=== PATIENT | male | born 1975 | race Caucasian/White ===

== ENCOUNTER → 2021-05-24 00:45 | Outpatient (CLI) | payer OTHER, SELFPAY ==
[2021-05-25 18:19] LABS: SARS-CoV-2 RNA PCR Negative
== END ==
PROVIDERS: PCP Internal Medicine; Visit Provider Internal Medicine Gastroenterology
DX: Z01.812 Encounter for preprocedural laboratory examination (principal); Z20.822 Contact with and (suspected) exposure to COVID-19
CPT/HCPCS: C9803; U0003; U0005

== ENCOUNTER 2021-05-27 00:24 | Day surgery (SDC) | payer OTHER, SELFPAY ==
[2021-05-13 15:19] VITALS: BMI 38.0
[2021-05-27 09:33] VITALS: BP 142/98; PULSE 110; RESP 18; TEMP 36.3; O2SAT 98; BMI 36.9
[2021-05-27] MEDS: LACTATED RINGERS 1,000 ML 150 ML IV CONT (09:50)
--- NOTE | 2021-05-27 09:51 | WPDANESEPPF ---
Anes - Initial Pre Proc Eval Procedure: Operation Date: 05/27/21 11:00 Proposed Procedures p Screening Colonoscopy - Tito Unger MD Date/Time: 05/27/21 09:51 Surgeon: Tito Unger MD Pre Op Diagnosis: neoplasm screening Patient Data Age: 46 Gender: M Height: 1.7 m Weight: 107 kg Last Vital Signs Temp 36.3 C L 05/27/21 09:33 Pulse 110 H 05/27/21 09:33 Resp 18 05/27/21 09:33 BP 142/98 H 05/27/21 09:33 Pulse Ox 98 05/27/21 09:33 Allergies Allergy/AdvReac Type Severity Reaction Status Date / Time No Known Allergies Allergy Verified 05/27/21 09:43 Home Medications Medication Instructions Recorded Confirmed Type atorvastatin 40 mg PO DAILY 05/13/21 05/27/21 History gabapentin 300 mg PO DAILY 05/13/21 05/27/21 History omeprazole 20 mg PO DAILY 05/13/21 05/27/21 History Patient hx anesthesia problems: none Family hx anesthesia problems: none Results Review: All pre-operative results and documents have been reviewed as part of the pre-operative evaluation. PMFSH Past Medical History Medical History Depression Obesity Smoker Surgical History Surgical History (Updated 05/27/21 @ 09:54 by Elier Oneal MD) H/O arthroscopic knee surgery History of appendectomy History of cholecystectomy Social History Social History Smoking packs per day: 1 Smoking cigarettes per day: 20.0 Years smoked: 30 Smoking pack-years: 30.00 Smoking status: Current every day smoker Tobacco type: cigarettes Alcohol intake: current Alcohol use details: on occasion Substance use: current Substance use type: marijuana Living arrangements: with family Anes - Eval Final PreProcedure Day of Procedure 05/27/21 09:51 Patient weight: obese Heart: regular rate and rhythm Lungs: clear to auscultation Airway: Mallampati scale class III Neurological: alert and oriented Last oral intake: >/= 8 hours ASA classification: III Emergent: no Anesthetic plan: proceed Anesthesia type and monitoring: general GIVS and standard monitoring Results Review: All pre-operative results and documents have been reviewed as part of the pre-operative evaluation. Informed Consent: The patient's anesthetic plan and its attendant risks and benefits were discussed with the patient/family/POA. Questions were solicited and answers provided to the satisfaction of the patient/family/POA.
--- NOTE | 2021-05-27 09:56 | PM.HPGS ---
History of Present Illness History of Present Illness Consent: Risks, benefits, and alternatives have been discussed and questions answered. Patient agrees to proceed with procedure. Chief complaint: neoplasm screening Narrative: Albaro Thapa is a 46 year old male here for first screening colonoscopy Review of Systems Constitutional: Constitutional: Denies headache(s) and Denies weakness Eyes: Eyes: Denies blurry vision ENT: Reports Normal hearing present, Denies headache(s) and Denies neck pain Cardiovascular: Cardiovascular: Denies chest pain and Denies dyspnea Respiratory: Respiratory: Denies dyspnea Gastrointestinal: Gastrointestinal: Reports no additional gastrointestinal complaints Genitourinary: Genitourinary: Denies dysuria Musculoskeletal: Musculoskeletal: Denies neck pain Integumentary/Breasts: Skin/Breast: Denies dry skin Neurologic: Reports Normal hearing present, Denies headache(s) and Denies weakness Psychiatric: Psychiatric: Denies anxiety Endocrine: Endocrine: Denies change in body appearance Hematologic/Lymphatic: Hematologic/Lymphatic: Denies easy bleeding Allergic/Immunologic: Allergic/Immunologic: Denies urticaria PMF Past Medical History Medical History Colon cancer screening Depression Obesity Smoker Surgical History Surgical History (Updated 05/27/21 @ 09:54 by Elier Oneal MD) H/O arthroscopic knee surgery History of appendectomy History of cholecystectomy Social History Social History Smoking packs per day: 1 Smoking cigarettes per day: 20.0 Years smoked: 30 Smoking pack-years: 30.00 Smoking status: Current every day smoker Tobacco type: cigarettes Alcohol intake: current Alcohol use details: on occasion Substance use: current Substance use type: marijuana Living arrangements: with family Meds Home Medications and Allergies Home Medications Medication Instructions Recorded Confirmed Type atorvastatin 40 mg PO DAILY 05/13/21 05/27/21 History gabapentin 300 mg PO DAILY 05/13/21 05/27/21 History omeprazole 20 mg PO DAILY 05/13/21 05/27/21 History Allergies Allergy/AdvReac Type Severity Reaction Status Date / Time No Known Allergies Allergy Verified 05/27/21 09:43 Vital Signs Vital Signs - 24 hr 05/27/21 09:33 Temperature 97.4 F L Pulse Rate 110 H Respiratory Rate 18 Blood Pressure 142/98 H Pulse Oximetry 98 Exam Const: General: comfortable and no acute distress HENMT: General nose exam: Normal nares present Eyes: General: appearance normal, both eyes and all related structures Neck: Neck: no JVD Resp: Auscultation: clear to auscultation bilaterally Cardio: Rate: regular rate Rhythm: regular rhythm GI: Inspection: non-distended GI Palp: Yes Soft to palpation Skin: General skin exam: normal color Neuro: General: gait normal Speech: normal speech Extrem: General: normal to inspection Psych: Mental Status: mental status grossly normal Assessment and Plan Assessment and plan (1) Colon cancer screening: Code(s): Z12.11 - Encounter for screening for malignant neoplasm of colon Status: Acute Assessment and Plan: colonoscopy
[2021-05-27 10:15] VITALS: BP 145/84; PULSE 95; RESP 22; O2SAT 92
[2021-05-27 10:25] VITALS: BP 114/78; PULSE 88; RESP 24; O2SAT 94
[2021-05-27 10:35] VITALS: BP 120/79; PULSE 86; RESP 20; O2SAT 94
== END 2021-05-27 10:45 | disposition home or self-care (01) ==
PROVIDERS: PCP Internal Medicine; Visit Provider Internal Medicine Gastroenterology
PROC: 0DJD8ZZ Inspection of Lower Intestinal Tract, Via Natural or Artificial Opening Endoscopic (ICD-10-PCS; CPT 45378; principal; 2021-05-27 11:00)
DX: Z12.11 Encounter for screening for malignant neoplasm of colon (principal); D12.0 Benign neoplasm of cecum; K64.8 Other hemorrhoids; F41.9 Anxiety disorder, unspecified; F17.210 Nicotine dependence, cigarettes, uncomplicated; F12.90 Cannabis use, unspecified, uncomplicated; E66.9 Obesity, unspecified; Z68.36 Body mass index [BMI] 36.0-36.9, adult
CPT/HCPCS: 45385; 88305; J2001; J2704; J7120

== ENCOUNTER 2023-10-15 18:51 | Emergency (ER) | payer OTHER, SELFPAY ==
[2023-10-15 18:56] VITALS: BP 124/75; PULSE 94; RESP 20; TEMP 36.6; O2SAT 98
--- NOTE | 2023-10-15 19:04 | ED.URI ---
HPI - URI/Sore Throat General Chief Complaint: Upper Respiratory Infection Stated Complaint: ear sinus or tooth Time Seen by Provider: 10/15/23 19:05 Source: patient Mode of arrival: ambulatory History of Present Illness HPI Narrative: 48-year-old male presented for complaint of left facial pain for the last 3 days. Endorses sharp shooting pains from the left ear to the cheek and jaw. Endorses slightly decreased hearing. Also endorses headaches but states he has chronic headaches. Denies vision changes, eye pain, dental pain, sore throat, tinnitus, nausea, vomiting, fevers or chills. Rates pain 9/10 at times. Taking tylenol and ibuprofen. Scheduled with dentist in 2 months. Related Data Home Medications Medication Instructions Recorded Confirmed atorvastatin 40 mg tablet 40 mg PO DAILY 05/13/21 10/15/23 omeprazole 20 mg capsule,delayed 20 mg PO DAILY 05/13/21 05/27/21 release bupropion HCl 150 mg 24 hr tablet, 150 mg PO DAILY 10/15/23 10/15/23 extended release cetirizine 10 mg tablet 10 mg PO DAILY 10/15/23 10/15/23 duloxetine 30 mg capsule,delayed 30 mg PO DAILY 10/15/23 10/15/23 release gabapentin 400 mg capsule 400 mg PO TID 10/15/23 10/15/23 Allergies Allergy/AdvReac Type Severity Reaction Status Date / Time No Known Allergies Allergy Verified 10/15/23 19:32 Review of Systems Review of Systems: CONSTITUTIONAL: Denies body aches, fever, chills ENT: Denies rhinorrhea, congestion, sore throat, or otalgia. Reports dental pain/face pain CARDIOVASCULAR: Denies chest pain, palpitations RESPIRATORY: Denies cough or dyspnea. SKIN: Denies rash, itching, or wounds. MUSCULOSKELETAL: Denies myalgia. NEUROLOGIC: Denies headache, numbness, tingling, or weakness. PMFSH Past Medical History Medical History Colon cancer screening Depression Obesity Smoker Surgical History Surgical History H/O arthroscopic knee surgery History of appendectomy History of cholecystectomy Social History Social History Smoking packs per day: 1 Smoking cigarettes per day: 20.0 Years smoked: 30 Smoking pack-years: 30.00 Smoking status: Current every day smoker Tobacco type: cigarettes Alcohol intake: current Alcohol use details: on occasion Substance use: current Substance use type: marijuana Living arrangements: with family Comments At time of signature, I have reviewed and agree with nursing past medical, surgical, social and family history unless otherwise noted. Please see nursing chart for further information. There is no relevant family history pertinent to the presenting complaint Exam Narrative: GENERAL: Appears in pain; no acute distress. HEAD: Normocephalic, atraumatic. Mildly tender to temporal area, maxilla, and mandible. EYES: EOMI. No redness or drainage. Conjunctivae normal. ENT: Dental pain location of Mucous membranes pink and moist. Nontender dentition, no gum swelling/erythema. TMs normal bilaterally. Throat normal. Uvula midline. NECK: Normal AROM. No lymphadenopathy. CHEST: No respiratory distress. Clear to auscultation. HEART: Regular rate and rhythm. No murmur appreciated. SKIN: Warm, dry, no rash. No erythema or bruising to face. Normal skin turgor. NEURO: No focal deficits. Alert and oriented x3. Gait steady. Course Course Emergency Course: Patient is aware of diagnosis, understands and agrees to treatment plan. Anticipatory guidance given. Patient agrees to follow-up as directed and is aware of reasons to seek care at the emergency department. Portions of this record may have been created with voice recognition software Level of Care: Express Care Visit MDM - URI/Sore Throat MDM Narrative Medical decision making narrative: Discussed physical exam findings most c/w trigeminal neuralgia. Currently taking gabapentin. States he has to l
== END 2023-10-15 19:25 | disposition home or self-care (01) ==
PROVIDERS: Emergency Provider Nurse Practitioner Family; PCP Internal Medicine
DX: R51.9 Headache, unspecified (principal); F32.A Depression, unspecified; E66.9 Obesity, unspecified; Z68.34 Body mass index [BMI] 34.0-34.9, adult; F17.210 Nicotine dependence, cigarettes, uncomplicated; F12.90 Cannabis use, unspecified, uncomplicated
CPT/HCPCS: 99213; G0463

== ENCOUNTER 2023-11-12 13:50 | Emergency (ER) | payer OTHER, SELFPAY ==
--- NOTE | ~2023-11-12 | XR_ITS ---
XR finger 4th LT min 2V Ordering provider: Eliane Hahn APRN History: . DISTAL PHALANX FLEXED AFTER INJURY . Comparison: None. FINDINGS: BONES: No acute fracture or dislocation. JOINT SPACES: Normal. SOFT TISSUES: Normal. IMPRESSION: No acute osseous abnormality. Reviewed, dictated and finalized at location A.
[2023-11-12 13:57] VITALS: BP 138/87; PULSE 68; RESP 16; TEMP 36.1; O2SAT 96
--- NOTE | 2023-11-12 14:23 | ED.GENADULT ---
HPI - General Adult General Chief complaint: Extremity Injury, Upper Stated complaint: Injury to Finger Time Seen by Provider: 11/12/23 14:23 Source: patient, RN notes reviewed and old records reviewed Mode of arrival: ambulatory Limitations: no limitations History of Present Illness HPI narrative: 48-year-old male to Express Care for complaint of injury to 4th digit of left hand. Patient reports that 3 days ago he was working on a swimming pool, lifting part of it with his right hand and pushing sand underneath it with his left hand. Patient states he felt pain while his left hand was underneath/out of site. Patient reports that when he pulled his hand back out he noticed a deformity at his distal 4th digit of left hand. Patient states that his entire digit was swollen for approximately 24 hours and the deformity has become less apparent over the past day or 2. Patient has not attempted to treat at home. Patient denies any prior injury, tingling, numbness, weakness. Patient reports that pain is non-existent with rest and that he only notices discomfort and he accidentally bumps digit. Patient in no acute distress. Related Data Home Medications Medication Instructions Recorded Confirmed atorvastatin 40 mg tablet 40 mg PO DAILY 05/13/21 10/15/23 omeprazole 20 mg capsule,delayed 20 mg PO DAILY 05/13/21 10/15/23 release bupropion HCl 150 mg 24 hr tablet, 150 mg PO DAILY 10/15/23 10/15/23 extended release cetirizine 10 mg tablet 10 mg PO DAILY 10/15/23 10/15/23 duloxetine 30 mg capsule,delayed 30 mg PO DAILY 10/15/23 10/15/23 release gabapentin 400 mg capsule 400 mg PO TID 10/15/23 10/15/23 tadalafil 5 mg tablet mg 11/12/23 Allergies Allergy/AdvReac Type Severity Reaction Status Date / Time No Known Allergies Allergy Verified 11/12/23 14:16 Review of Systems Review of Systems: All systems reviewed & are unremarkable except as noted in HPI and below Constitutional: Constitutional: Reports no additional constitutional complaints Eyes: Eyes: Reports no additional eye complaints ENT: Reports system reviewed and no additional complaints, except as documented Cardiovascular: Cardiovascular: Reports no additional cardiovascular complaints, Denies chest pain and Denies dyspnea Respiratory: Respiratory: Reports no additional respiratory complaints, Denies cough and Denies dyspnea Musculoskeletal: Musculoskeletal: Reports no additional musculoskeletal complaints Neurologic: Reports system reviewed and no additional complaints, except as documented Psychiatric: Psychiatric: Reports no additional psychiatric complaints PMFSH Past Medical History Medical History Colon cancer screening Depression Obesity Smoker Surgical History Surgical History H/O arthroscopic knee surgery History of appendectomy History of cholecystectomy Social History Social History Smoking packs per day: 1 Smoking cigarettes per day: 20.0 Years smoked: 30 Smoking pack-years: 30.00 Smoking status: Current every day smoker Tobacco type: cigarettes Alcohol intake: current Alcohol use details: on occasion Substance use: current Substance use type: marijuana Living arrangements: with family Comments At the time of my signature, I reviewed and agree with the nursing past medical, surgical, social, and family history. There is no relevant family history pertinent to the patient complaint. Exam Const: General: cooperative, healthy appearing, comfortable, no acute distress, alert and well nourished Nutritional Appearance: well nourished Orientation/consciousness: patient oriented x3 Limitations: no limitations HENMT: Head: normal to inspection Ears: external ears normal Face/Nose/Sinus: Normal external nose present, Normal nares present, normal facial exam, No erythema and No edema Face and sinus
== END 2023-11-12 14:58 | disposition home or self-care (01) ==
PROVIDERS: Emergency Provider Nurse Practitioner Family; PCP Internal Medicine
DX: M20.012 Mallet finger of left finger(s) (principal); F17.210 Nicotine dependence, cigarettes, uncomplicated; F12.90 Cannabis use, unspecified, uncomplicated; E66.9 Obesity, unspecified; Z68.34 Body mass index [BMI] 34.0-34.9, adult; F32.A Depression, unspecified
CPT/HCPCS: 29130; 73140; 99213; G0463

== ENCOUNTER → 2024-01-19 12:13 | Outpatient (CLI) | payer OTHER, SELFPAY ==
--- NOTE | ~2024-01-19 | XR_ITS ---
EXAMINATION: XR foot LT min 3V DATE: 01/19/2024 12:28 INDICATION: Bruising to the distal first-third right metatarsals post injury TECHNIQUE: Dorsoplantar, two oblique and lateral views of the right foot were obtained. COMPARISON: None. FINDINGS: Alignment is normal. No fracture. Mild tricompartmental osteoarthritis at multiple joints in the mid and forefoot. Soft tissues are unremarkable. IMPRESSION: 1. 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 No acute osseous abnormality. Reviewed, dictated and finalized at location B.
== END ==
PROVIDERS: PCP Internal Medicine; Visit Provider Internal Medicine
DX: M19.072 Primary osteoarthritis, left ankle and foot (principal)
CPT/HCPCS: 73630

== ENCOUNTER 2024-09-06 10:21 | Emergency (ER) | payer OTHER, SELFPAY ==
--- NOTE | ~2024-09-06 | XR_ITS ---
3 VIEWS LUMBAR SPINE Ordering provider: Monica Bull APRN History: . pain . Comparison: None. FINDINGS: VERTEBRAL BODIES:Attempt of sacralization of L5. No visible fracture or subluxation. DISK SPACES: Narrowing of the disc L5-S1. SOFT TISSUES: Normal. IMPRESSION: No acute osseous abnormality lumbar spine. Degenerative disc disease at the level of L5-S1. Reviewed, dictated and finalized at location A.
[2024-09-06 10:23] VITALS: BP 138/90; PULSE 68; RESP 16; TEMP 36.4; O2SAT 99
--- NOTE | 2024-09-06 10:32 | ED.BACK ---
HPI - Back Pain/Injury General Chief Complaint: Back Pain/Injury Stated Complaint: Low Back Pain Time Seen by Provider: 09/06/24 10:35 Source: patient Mode of arrival: ambulatory Limitations: no limitations History of Present Illness HPI Narrative: 49-year-old male presented for complaint of mid low back x1 week. Denies injury. Pain improved for 3 days off of work and with rest, but not resolved. Took ibuprofen last week without much relief. Took muscle relaxer and unknown pill this morning without much improvement. Also reports chronic right knee pain which feels like it will give out due to the back pain. Denies pain radiating into the hips or legs, numbness, tingling, weakness of the lower extremities, or change in gait, saddle paresthesia or loss of bowel or bladder. Scheduled with new pcp in 2 days. He is missing work. Related Data Home Medications ?Medication ?Instructions ?Recorded ?Confirmed ?Last Taken ?Type atorvastatin 40 mg tablet 40 mg PO DAILY 05/13/21 10/15/23 Unknown History omeprazole 20 mg capsule,delayed 20 mg PO DAILY 05/13/21 10/15/23 Unknown History release bupropion HCl 150 mg 24 hr tablet, 150 mg PO DAILY 10/15/23 10/15/23 Unknown History extended release cetirizine 10 mg tablet 10 mg PO DAILY 10/15/23 10/15/23 Unknown History gabapentin 400 mg capsule 400 mg PO TID 10/15/23 10/15/23 Unknown History duloxetine 60 mg capsule,delayed mg PO 09/06/24 Unknown History release Allergies Allergy/AdvReac Type Severity Reaction Status Date / Time No Known Allergies Allergy Verified 09/06/24 10:31 Review of Systems Review of Systems: CONSTITUTIONAL: Denies body aches, fever, chills EYES: Denies visual changes CARDIOVASCULAR: Denies chest pain, palpitations, or edema. RESPIRATORY: Denies cough or dyspnea. GASTROINTESTINAL: Denies abdominal pain, nausea, vomiting, or diarrhea. SKIN: Denies rash, itching, or wounds. MUSCULOSKELETAL: reports back pain, right knee pain NEUROLOGIC: Denies headache, numbness, tingling, or weakness. All systems reviewed & are unremarkable except as noted in HPI and below PMFSH Past Medical History Medical History Colon cancer screening Depression Obesity Smoker Surgical History Surgical History H/O arthroscopic knee surgery History of appendectomy History of cholecystectomy Social History Social History Smoking packs per day: 1 Smoking cigarettes per day: 20.0 Years smoked: 30 Smoking pack-years: 30.00 Smoking status: Current every day smoker Tobacco type: cigarettes Alcohol intake: current Alcohol use details: on occasion Substance use: current Substance use type: marijuana Living arrangements: with family Comments At time of signature, I have reviewed and agree with nursing past medical, surgical, social and family history unless otherwise noted. Please see nursing chart for further information. There is no relevant family history pertinent to the presenting complaint Exam Narrative: GENERAL: Well-appearing NECK: Supple. full ROM CHEST: Speaks in full sentences. No respiratory distress. HEART: Regular rate and rhythm. Normal and equal peripheral pulses. MUSC: No Vertebral point tenderness. Mild paraspinal lumbar tenderness, says pain worse with movement. BLEs with normal strength and sensation, normal range of motion. no edema or ecchymosis, alignment normal, pulse palpable and equal bilaterally, skin warm, dry, pink. Capillary refill less than 3 seconds. Gait steady. SKIN: Warm, dry, no rash. NEURO: Alert and oriented x3. Course Course Emergency Course: Patient is aware of diagnosis, understands and agrees to treatment plan. Anticipatory guidance given. Patient agrees to follow-up as directed and is aware of reasons to seek care at the emergency department. Portions of this record may have been created with voice recognition software Level of Care: Express Care Visit Vital Signs Vital signs: Vital Signs Temperature 97.6 F 09/06/24 10:23 Pulse Rate 68 09/06/24 10:23 Respiratory Rate 16 09/06/24 10:23 Blood Pressure 138/90 09/06/24 10:23 Pulse Oximetry 99 09/06/24 10:23 Oxygen Delivery Room Air 09/06/24 10:23 Temperature 97.6 F 09/06/24 10:23 Pulse Rate 68 09/06/24 10:23 Respiratory Rate 16 09/06/24 10:23 Blood Pressure 138/90 09/06/24 10:23 Pulse Oximetry 99 09/06/24 10:23 Oxygen Delivery Room Air 09/06/24 10:23 Reviewed MDM - Back Pain/Injury MDM Narrative Medical decision making narrative: Xray reviewed with pt. Reviewed Rx. Advised supportive measures and s/s to go to the ER. Pt is stable and appropriate for outpt treatment and follow up with pcp. Differential Diagnosis Differential diagnosis: Likely lumbar radiculopathy, sciatica, strain of lumbar region, renal colic, pyelonephritis and discitis Imaging Data Radiologist's impression: Patient: Albaro Thapa : 1975 MR#: [id number] Age: 49 Acct:[id number] Loc: [facility] ADM Date: 09/06/24Attending Dr: Ordering Physician: Monica Bull APRN Date of Service: 09/06/24 Procedure(s): XR lumbar spine 2-3V Accession Number(s): [id number] cc: Monica Bull APRN; Abdulkadir, Tina MCMAHON~ 3 VIEWS LUMBAR SPINE Ordering provider: Monica Bull APRN History: . pain . Comparison: None. FINDINGS: VERTEBRAL BODIES:Attempt of sacralization of L5. No visible fracture or subluxation. DISK SPACES: Narrowing of the disc L5-S1. SOFT TISSUES: Normal. IMPRESSION: No acute osseous abnormality lumbar spine. Degenerative disc disease at the level of L5-S1. Discharge Plan Discharge Clinical Impression: Low back pain Qualifiers: Chronicity: acute Back pain laterality: bilateral Sciatica presence: without sciatica Qualified Code(s): M54.50 - Low back pain, unspecified Patient Disposition: Home Condition: Stable Instructions: Antibiotic Form, Low Back Strain (ED) Additional Instructions: Please follow up with your Primary Care Doctor within 48-72 hours - call for an appointment. Avoid lifting. pushing. pulling, or anything that worsens the pain. Walking and other gentle exercising several times a week has been shown to improve back pain; bed rest is not recommended. Take steroid as directed Tylenol 1000mg every 8 hours Take muscle relaxers every 8 hours as needed for muscle spasm- do not drive or make any important decisions while on this medication for it can make you drowsy. Over the counter pain cream like icy/hot or biofreeze, or Salon pas/lidocaine 4% patch. You may apply heat or cold to the area as needed. If you experience any worsening pain, swelling, numbness, weakness, problems with bladder or bowel function, weakness or loss of feeling in one or both of your legs, or any other serious concerns. Patient Language: Wallisian Prescriptions: New cyclobenzaprine 10 mg tablet 10 mg PO TID PRN (Reason: muscle spasm) Qty: 12 0RF prednisone 50 mg tablet 50 mg PO DAILY Qty: 5 0RF No Action gabapentin 400 mg capsule 400 mg PO TID cetirizine 10 mg tablet 10 mg PO DAILY bupropion HCl 150 mg tablet extended release 24 hr 150 mg PO DAILY duloxetine 60 mg capsule,delayed release(DR/EC) PO omeprazole 20 mg capsule,delayed release(DR/EC) 20 mg PO DAILY atorvastatin 40 mg tablet 40 mg PO DAILY Follow-up/Referrals: Abdulkadir,MD Tina [Primary Care Provider] - Stand Alone Forms: Work/School Release IP Time of Disposition: 11:38
--- OUTSIDE RECORDS SUMMARY | 2024-09-06 11:31 | XMS_ITS | Encounter Summary ---
Author Organization [facility] Address [address] [place] [address] Phone Care Team Providers Care Berry Picker Name Role Phone Tina Panchal MD Primary Care Provider [phone] Luz Gauthier MD Unavailable [phone] Reason for Visit * Reason Comments Medication Refill Encounter Details Date Type Department Care Team (Late st Contact Info) Description 07/20/2023 Refill [facility] [address] [place] [address] Luz Gauthier MD [address] [address] Medication Refill Social History Tobacco Use Types Packs/Day Years Used Date Smoking Tobacco: Every Day Cigarettes 0.5 23 Smokeless Tobacco: Never Alcohol Use Standard Drinks/Week Comments No 0 (1 standard drink = 0.6 oz pur e alcohol) Sexually Active Control Partners Comments Not Currently Sex and Gender Information Value Date Recorded Sex Assigned at Not on file Legal Sex Male 9:50 PM CDT Gender Identity Not on file Sexual Orientation Not on file 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 Requested Prescriptions Pending Prescriptions Disp Refills Tadalafil 5 MG Tablet [Pharmacy Med Name: Tadalafil 5 MG Oral Tablet] 30 Tablet 0 Sig: Take 1 tablet by mouth once daily Erectile Dysfunction Medication Protocol Failed - 07/20/2023 8:13 PM Failed - Erectile dysfunction on problem list Passed - Visit with relevant provider in past 12 months or upcoming 90 days Recent Visits Date Type Provider Dept 03/13/23 Office Visit Luz Gauthier MD [facility] [place] Showing recent visits within past 365 days and meeting all other requirements Future Appointments No visits were found meeting these conditions. Showing future appointments within next 90 days and meeting all other requirements Passed - Absence of nitrates on med list documented in this encounter Plan of Treatment Not on file documented as of this encounter Visit Diagnoses Not on filedocumented in this encounter Care Teams Berry Picker Relationship Specialty Start Date End Date Tina Panchal MD [address] [place] [id number] PCP - General Internal Medicine 01/01/16 Luz Gauthier MD [address] [address] Consulting Physician Urology 12/27/21 documented as of this encounter
--- OUTSIDE RECORDS SUMMARY | 2024-09-06 11:31 | XMS_ITS | Encounter Summary ---
Author Organization [facility] Address [address] [place] [address] Phone Care Team Providers Care Drupal Programmer Name Role Phone Tina Panchal MD Primary Care Provider [phone] Luz Gauthier MD Unavailable [phone] Reason for Visit * Reason Comments Medication Refill Encounter Details Date Type Department Care Team (Late st Contact Info) Description 08/25/2023 Refill [facility] [address] [place] [address] Luz Gauthier MD [address] [address] Medication Refill Social History Tobacco Use Types [...] Telephone Encounter - Mia Slater RN - 08/25/2023 4:12 PM CDT Medication failed the protocol, provider to review and approve the medication order if appropriate. Requested Prescriptions Pending Prescriptions Disp Refills Tadalafil 5 MG Tablet [Pharmacy Med Name: Tadalafil 5 MG Oral Tablet] 30 Tablet 0 Sig: Take 1 tablet by mouth once daily Erectile Dysfunction Medication Protocol Failed - 08/25/2023 3:02 PM Failed - Erectile dysfunction on problem list Passed - Visit with relevant provider in past 12 months or upcoming 90 days Recent Visits Date Type Provider Dept 03/13/23 Office Visit Luz Gauthier MD [facility] [place] Showing recent visits within past 365 days [...] on filedocumented in this encounter Care Teams Drupal Programmer Relationship Specialty Start Date End Date Tina Panchal MD [address] [address] PCP - General Internal Medicine 01/01/16 Luz Gauthier MD [address] [address] Consulting Physician Urology 12/27/21 documented as of this encounter
--- OUTSIDE RECORDS SUMMARY | 2024-09-06 11:31 | XMS_ITS | Referral Summary ---
Author Organization [facility] Address [address] [place] [address] Care Team Providers Care Elevated Motorman Name Role Phone Tina Panchal MD Primary Care Provider [phone] Deena Galeas Unavailable [phone] Allergies No known active allergies Medications atorvastatin (LIPITOR) 40 mg tablet take 1 tablet by oral route every day 0 0 11/13/2015 Active acetaminophen (TYLENOL EX STR RAPID RELEASE) 500 mg tablet take 2 tablet by oral route every 6 hours as needed 0 0 11/16/2012 Active omeprazole (PriLOSEC) 20 mg capsule take 1 capsule (20MG) by oral route every day before a meal 0 01/15/2011 Active amitriptyline (ELAVIL) 10 mg tablet Take 1 tablet (10 mg total) by mouth nightly. 30 tablet 2 10/23/2016 Active gabapentin (NEURONTIN) 300 mg capsule TAKE ONE CAPSULE BY MOUTH 3 TIMES A DAY 90 capsule 3 08/05/2017 Active ibuprofen (ADVIL,MOTRIN) 600 mg tablet Take 1 tablet (600 mg total) by mouth 4 (four) times a day as needed for pain Take with food. 30 tablet 12/28/2019 Active albuterol HFA (PROVENTIL HFA,VENTOLIN HFA,PROAIR HFA) 90 mcg/actuation inhaler 05/09/2020 Active azithromycin (ZITHROMAX) 250 mg tablet TAKE 2 TABLETS BY MOUTH TODAY, THEN TAKE 1 TABLET DAILY FOR 4 DAYS 03/06/2020 Active FLUoxetine (PROzac) 20 mg capsule 06/05/2020 Active valACYclovir (VALTREX) 500 mg tablet TAKE 1 TABLET BY MOUTH THREE TIMES A DAY FOR 7 DAYS 06/13/2020 Active cetirizine (ZyrTEC) 10 mg tablet 10/17/2020 Active buPROPion XL (WELLBUTRIN XL) 150 mg 24 hr tablet Take 1 tablet (150 mg total) by mouth daily Active docusate sodium (COLACE) 100 mg capsule Take 1 tablet by mouth daily Active DULoxetine DR (CYMBALTA) 30 mg capsule Take by mouth daily 09/17/2023 Active tadalafiL (CIALIS) 5 mg tablet Take 1 tablet (5 mg total) by mouth daily 01/17/2022 Active gabapentin (NEURONTIN) 400 mg capsule Take 1 capsule (400 mg total) by mouth 3 (three) times a day 07/30/2023 Active Active Problems Problem Noted Date Diagnosed Date Other tear of medial meniscu s, current injury, right knee, initial encounter 04/19/2020 Overview (04/19/2020): Added automatically from request for surgery [id number] Sprain of medial collateral ligament of right kn ee 01/18/2020 Internal derangement of right knee 01/18/2020 DNS (deviated nasal septum) 01/01/2016 Current smoker 09/24/2013 Overview (08/15/2016): Smoker Generalized anxiety disorder 09/24/2013 Overview (08/15/2016): GENERALIZED ANXIETY DIS Irritable bowel syndrome 09/24/2013 Overview (08/15/2016): IBS (irritable bowel syndrome) Trigeminal neuralgia 11/16/2012 Overview (08/15/2016): Trigeminal neuralgia Social History Tobacco Use Types Packs/Day Years Used Date Smoking Tobacco: Every Day Cigarettes Smokeless Tobacco: Never Alcohol Use Standard Drinks/Week Comments No 0 (1 standard drink = 0.6 oz pur e alcohol) Sex and Gender Information Value Date Recorded Sex Assigned at Not on file Legal Sex Male 1:47 AM RAILROAD DESIGN CONSULTANT Gender Identity Not on file Sexual Orientation Not on file Last Filed Vital Signs Vital Sign Reading Time Taken Comments Blood Pressure 137/84 09/23/2023 8:32 AM CDT Pulse 71 09/23/2023 8:32 AM CDT Temperature 36.2 C (97.2 F) 04/04/2021 11:01 AM RAILROAD DESIGN CONSULTANT Respiratory Rate 18 04/04/2021 11:01 AM RAILROAD DESIGN CONSULTANT Oxygen Saturation 95% 04/04/2021 11:01 AM RAILROAD DESIGN CONSULTANT Inhaled Oxygen Concentration - - Weight 103.9 kg (229 lb) 09/23/2023 8:32 AM CDT Height 172.7 cm (5' 8 ) 09/23/2023 8:32 AM CDT Body Mass Index 34.82 09/23/2023 8:32 AM CDT Plan of Treatment Not on file Insurance [facility] [employer] GENERIC Care Teams Elevated Motorman Relationship Specialty Start Date End Date Tina Panchal MD [address] [place] [address] PCP - General 07/02/16 Deena Galeas PA [address] [place] [address] Physician Reimbursement Spec Orthopedic Surgery 05/03/20
--- OUTSIDE RECORDS SUMMARY | 2024-09-06 11:31 | XMS_ITS | Clinical Summary ---
Author Organization [facility] Address [address] [place] [address] Care Team Providers Care Vmware Engineer Name Role Phone Tina Panchal MD Primary Care Provider [phone] Deena Galeas Unavailable [phone] Allergies No known active allergies Medications atorvastatin [...] (04/19/2020): Added automatically from request for surgery [id number] Sprain of medial collateral ligament of right kn ee 01/18/2020 Internal derangement of right knee 01/18/2020 DNS (deviated nasal septum) 01/01/2016 Current smoker 09/24/2013 Overview (08/15/2016): Smoker Generalized anxiety disorder 09/24/2013 Overview (08/15/2016): GENERALIZED ANXIETY DIS Irritable bowel syndrome 09/24/2013 Overview (08/15/2016): IBS (irritable bowel syndrome) Trigeminal neuralgia 11/16/2012 Overview (08/15/2016): Trigeminal neuralgia Surgical History Surgery Date Site/Laterality Comments CHOLECYSTECTOMY 2008 Cholecystectomy APPENDECTOMY 2008 Appendectomy APPENDECTOMY Appendectomy CHOLECYSTECTOMY cholesysectomy CHOLECYSTECTOMY Cholecystectomy KNEE ARTHROSCOPY Arthroscopy knee KNEE SURGERY Medical History Medical History Date Comments Hyperlipidemia Hyperlipidemia; Comments: DWL 01/03/2014 - Hx Other Medical Headache, migra ine Hypertension Hypertension GERD (gastroesophageal reflux disease) Family History Medical History Relation Name Comments Migraines Mother Migraine; Pancreatic cancer Mother Cancer -pa ncreatic; /Cancer, pancreas; Pancreatic cancer Other Family his tory of Cancer, pancreas; Relation Name Status Comments Mother Other Social History Tobacco Use Types Packs/Day Years Used Date Smoking Tobacco: Every Day Cigarettes Smokeless Tobacco: Never Alcohol Use Standard Drinks/Week Comments No 0 (1 standard drink = 0.6 oz pur e alcohol) Sex and Gender Information Value Date Recorded Sex Assigned at Not on file Legal Sex Male 1:47 AM CLINICAL EDUCATION COORDINATOR Gender Identity Not on file Sexual Orientation Not on file Obstetrics History Last Filed Vital Signs Vital Sign Reading Time Taken Comments Blood Pressure 137/84 09/23/2023 8:32 AM CDT Pulse 71 09/23/2023 8:32 AM CDT Temperature 36.2 C (97.2 F) 04/04/2021 11:01 AM CLINICAL EDUCATION COORDINATOR Respiratory Rate 18 04/04/2021 11:01 AM CLINICAL EDUCATION COORDINATOR Oxygen Saturation 95% 04/04/2021 11:01 AM CLINICAL EDUCATION COORDINATOR Inhaled Oxygen Concentration - - Weight 103.9 kg (229 lb) 09/23/2023 8:32 AM CDT Height 172.7 cm (5' 8 ) 09/23/2023 8:32 AM CDT Body Mass Index 34.82 09/23/2023 8:32 AM CDT Plan of Treatment Health Maintenance Due Date Last Done Comments Colon Cancer Screening-Colonoscopy 1976 Depression Screening 1976 Hepatitis C Screening 1976 Hepatitis B Screening 02/13/1994 Regular Well Visit/Exam 18-64 02/13/1994 Pneumococcal vaccine <65 (1 of 2 - PCV) 02/13/1995 Influenza Vaccine (#1) 2024 DTaP/Tdap/Td Vaccine (2 - Td or Tdap) 02/26/2026 Insurance [facility] [employer] COMPENSATION GENERIC Care Teams Vmware Engineer Relationship Specialty Start Date End Date Tina Panchal MD [address] [place] [address] PCP - General 07/02/16 Deena Galeas PA [address] [place] [address] Physician Web Engineer Orthopedic Surgery 05/03/20
--- OUTSIDE RECORDS SUMMARY | 2024-09-06 11:31 | XMS_ITS | Clinical Summary ---
Author Organization [facility] Address [address], [address] [address] Phone Care Team Providers Care Inspection Engineer Name Role Phone Tina Panchal MD Primary Care Provider [phone] Luz Gauthier MD Unavailable [phone] Allergies No known active allergies Medications amitriptyline (ELAVIL) 10 MG Tablet TAKE 1 TABLET BY ORAL ROUTE EVERY BEDTIME 6 12/15/2015 Active atorvastatin (LIPITOR) 40 MG Tablet TAKE 1 TABLET BY MOUTH AT BEDTIME 3 12/16/2015 Active carBAMazepine (TEGRETOL) 200 MG Tablet TAKE 2 TABLETS 2 TIMES A DAY 2 12/15/2015 Active FLUoxetine (PROZAC) 20 MG Capsule TAKE 2 CAPSULES EVERY DAY 1 12/12/2015 Active gabapentin (NEURONTIN) 300 MG Capsule 400 mg. 5 11/13/2015 Active loratadine (CLARITIN) 10 MG Tablet TAKE 1 TABLET(S) EVERY DAY BY MOUTH. 2 12/15/2015 Active omeprazole (PRILOSEC) 20 MG CAPSULE DELAYED RELEASE Take 20 mg by mouth daily. Active ketorolac (TORADOL) 10 MG Tablet Take 1 Tab by mouth every 6 hours as needed for Mild or more severe pain. 15 Tab 12/03/2018 Active gabapentin (NEURONTIN) 400 MG Capsule TAKE 1 CAPSULE BY MOUTH THREE TIMES A DAY 01/07/2022 Active Tadalafil (Cialis) 5 MG Tablet Take 1 Tablet by mouth daily. 30 Tablet 3 01/17/2022 Active albuterol 108 (90 Base) MCG/ACT Aerosol Solution INHALE 2 PUFFS BY MOUTH THREE TIMES DAILY 01/20/2023 Active cetirizine (ZyrTEC) 10 MG Tablet Take 10 mg by mouth daily. 02/11/2023 Active ibuprofen (MOTRIN) 600 MG Tablet Take 600 mg by mouth. 12/28/2019 Active traMADol (ULTRAM) 50 MG Tablet TAKE 1 TABLET TWICE A DAY BY ORAL ROUTE NEEDED. 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 TMJ (temporomandibular joint syndrome) 6 Social History Tobacco Use Types Packs/Day Years Used Date Smoking Tobacco: Every Day Cigarettes 0.5 23 Smokeless Tobacco: Never Tobacco Cessation:Ready to Q uit: No; Counseling Given: Yes Alcohol Use Standard Drinks/Week Comments No 0 [...] file Not on file Not on file Last Filed Vital Signs Vital Sign Reading Time Taken Comments Blood Pressure 113/79 03/13/2023 8:57 AM CDT Pulse 80 03/13/2023 8:57 AM CDT Temperature 36.8 C (98.3 F) 03/13/2023 8:57 AM CDT Respiratory Rate 20 03/13/2023 8:57 AM CDT Oxygen Saturation 98% 03/14/2022 8:48 AM CDT Inhaled Oxygen Concentration - - Weight 104.3 kg (230 lb) 03/13/2023 8:57 AM CDT Height 170.2 cm (5' 7 ) 03/13/2023 8:57 AM CDT Body Mass Index 36.02 03/13/2023 8:57 AM CDT Plan of Treatment Health Maintenance Due Date Last Done Comments Hepatitis C Virus (HCV) Screening 1975 Hepatitis B Immunization (1 of 3 - 19+ 3-dose series) 02/13/1995 Pneumococcal Immunization Combined (1 of 2 - PCV) 02/13/1995 Colonoscopy 02/13/2021 Colorectal Cancer Screening 02/13/2021 Influenza Immunization (#1) 2024 SARS-COV-2 Immunization (1 - 2023- season) 2024 Respiratory Syncytial Virus (RSV) Immunization (Adult) (1 - 1-dose 75+ series) 02/13/2051 DTaP/Tdap/Td Immunization Discontinued 02/27/2016 TdaP Immunization Completed 02/27/2016 Meningococcal Immunization (ACWY) Aged Out No longer eligible based on patient's age to complete this topic Rotavirus Immunization Aged Out No lo nger eligible based on patient's age to complete this topic Insurance MEDICAID [place] Care Teams Inspection Engineer Relationship Specialty Start Date End Date Tina Panchal MD [address] [place] [address] PCP - General Internal Medicine 01/01/16 Luz Gauthier MD #[address] [address] Consulting Physician Urology 12/27/21
--- OUTSIDE RECORDS SUMMARY | 2024-09-06 11:31 | XMS_ITS | Encounter Summary ---
Author Organization [facility] Address [address] [place] [address] Phone Care Team Providers Care Driveway Attendant Name Role Phone Tina Panchal MD Primary Care Provider [phone] Luz Gauthier MD Unavailable [phone] Reason for Visit * Reason Comments Medication Refill Encounter Details Date Type Department Care Team (Late st Contact Info) Description 06/12/2023 Refill [facility] [address] [place] [address] Luz Gauthier MD [address] [address] Medication Refill Social History Tobacco Use Types [...] on file documented as of this encounter Plan of Treatment Not on file documented as of this encounter Visit Diagnoses Not on filedocumented in this encounter Care Teams Driveway Attendant Relationship Specialty Start Date End Date Tina Panchal MD [address] [place] [address] PCP - General Internal Medicine 01/01/16 Luz Gauthier MD [address] [place] [address] Consulting Physician Urology 12/27/21 documented as of this encounter
== END 2024-09-06 11:42 | disposition home or self-care (01) ==
PROVIDERS: Emergency Provider Nurse Practitioner Family; PCP Internal Medicine
DX: M54.50 Low back pain, unspecified (principal); F17.210 Nicotine dependence, cigarettes, uncomplicated; E66.9 Obesity, unspecified; Z68.36 Body mass index [BMI] 36.0-36.9, adult; F32.A Depression, unspecified
CPT/HCPCS: 72100; 99213; G0463

== ENCOUNTER 2025-03-27 09:33 | Emergency (ER) | payer OTHER, SELFPAY ==
[2025-03-27 09:38] VITALS: BP 134/71; PULSE 69; RESP 20; TEMP 36.6; O2SAT 99
--- NOTE | 2025-03-27 10:06 | ECG_ITS ---
Test Date: 2025-03-27 10:15:12 Measurements Intervals [place] Rate: 59 P: 8 ME: 146 QRS: 24 QRSD: 94 T: 30 QT: 411 QTc: 410 Interpretive Statements SINUS BRADYCARDIA Electronically Signed On 03-27-2025 11:25:55 LEAD NEURODIAGNOSTIC TECHNOLOGIST by Ari Larsen D.O
--- NOTE | 2025-03-27 10:42 | ED.DIZZY ---
HPI - Dizziness General Chief Complaint: Dizziness Stated Complaint: Dizziness Time Seen by Provider: 03/27/25 10:30 Source: patient and RN notes reviewed Mode of arrival: ambulatory Limitations: no limitations History of Present Illness HPI Narrative: 50-year-old male patient presents Express Care complaining of dizziness intermittently for the last week. Patient says he feels like the room is spinning, patient says is worse with certain position changes or if he turns his head too quickly. Patient also reports feeling pressure in his head and intermittent headaches, and some nausea but no vomiting. Patient denies any vision changes, double vision, slurred speech, chest pain, difficulty breathing, one-sided weakness, focal weakness, facial droop, confusion, loss of consciousness,, chest pain, fevers, or any other symptoms. Patient also said he ran out of his duloxetine last week. Patient denies any significant past medical problems. Patient is a former smoker. Related Data Home Medications ?Medication ?Instructions ?Recorded ?Confirmed ?Last Taken ?Type atorvastatin 40 mg tablet 40 mg PO DAILY 05/13/21 10/15/23 Unknown History omeprazole 20 mg capsule,delayed 20 mg PO DAILY 05/13/21 10/15/23 Unknown History release bupropion HCl 150 mg 24 hr tablet, 150 mg PO DAILY 10/15/23 10/15/23 Unknown History extended release cetirizine 10 mg tablet 10 mg PO DAILY 10/15/23 10/15/23 Unknown History gabapentin 400 mg capsule 400 mg PO TID 10/15/23 10/15/23 Unknown History duloxetine 60 mg capsule,delayed mg PO 09/06/24 Unknown History release Allergies Allergy/AdvReac Type Severity Reaction Status Date / Time No Known Allergies Allergy Verified 03/27/25 10:06 Review of Systems Review of Systems: CONSTITUTIONAL: Denies fever, chills, or sweats. EYES: Denies visual changes, double vision, redness, or discharge. ENT: Denies rhinorrhea, congestion, sore throat, or otalgia. CARDIOVASCULAR: Denies chest pain, palpitations, lightheadedness, or edema. Positive for dizziness. RESPIRATORY: Denies cough or dyspnea. GASTROINTESTINAL: Denies abdominal pain, vomiting, or diarrhea. Positive for nausea. GENITOURINARY: Denies dysuria or hematuria. SKIN: Denies rash or itching. MUSCULOSKELETAL: Denies back pain, joint pain, or myalgia. NEUROLOGIC: Denies headache, numbness, focal weakness, slurred speech, facial droop, loss of consciousness, seizures, or weakness. PSYCHIATRIC: Denies anxiety or depression. All other systems reviewed are negative, except as documented in HPI. [facility] Past Medical History Medical History Colon cancer screening Depression Smoker Obesity Surgical History Surgical History History of appendectomy History of cholecystectomy H/O arthroscopic knee surgery Social History Social History Smoking packs per day: 1 Smoking cigarettes per day: 20.0 Years smoked: 30 Smoking pack-years: 30.00 Smoking status: Current every day smoker Tobacco type: cigarettes Alcohol intake: current Alcohol use details: on occasion Substance use: current Substance use type: marijuana Living arrangements: with family Comments At the time of my signature, I reviewed and agree with the nursing past medical, surgical, social, and family history. There is no relevant family history pertinent to the patient complaint. Exam Narrative: GENERAL: This is a well-nourished, well-developed adult, in no apparent distress. They are non ill-appearing, nontoxic appearing. HEAD: normocephalic, atraumatic. EYES: Sclera clear/white. Conjunctiva normal. Vision is grossly intact. Extraocular movements intact. Pupils PERRLA. Horizontal Nystagmus present. EARS: External ears normal, auditory canals clear and without drainage, TMs normal without perforation. Hearing grossly intact. NOSE: External nose normal with no obvious nasal discharge, nasal turbinates without redness, no rhinorrhea. THROAT: Mucous membranes moist, posterior pharynx clear, without erythema or swelling. Uvula midline. NECK: Neck supple, non-tender without lymphadenopathy, masses or thyromegaly. CARDIOVASCULAR: Regular rate and rhythm without murmurs, gallops, or rubs. RESPIRATORY: Clear to auscultation. Breath sounds equal bilaterally. No wheezes, rales, or rhonchi. SKIN: warm, Dry, intact with no suspicious lesions or rash, good texture and turgor. NEURO: awake, alert, and oriented to person, place and time. There were no obvious focal neurologic abnormalities. Cranial nerve 2-12 grossly intact. No limb ataxia. No pronator drift. Senior Java Software Engineer strength 5/5 equal bilaterally. Arm strength 5/5 equal bilaterally. Leg strength 5/5 equal bilaterally. No inattention or extinction. No facial droop. Speech is clear. Normal dorsiflexion and plantar flexion. EXTREMITIES: No joint tenderness, effusion, or edema noted. BACK: Nontender without deformity. No CVA tenderness. Course Course Emergency Course: Portions of this record may have been created with voice recognition software Level of Care: Express Care Visit Vital Signs Vital signs: Vital Signs Temperature 97.9 F 03/27/25 09:38 Pulse Rate 69 03/27/25 09:38 Respiratory Rate 20 03/27/25 09:38 Blood Pressure 134/71 03/27/25 09:38 Pulse Oximetry 99 03/27/25 09:38 Oxygen Delivery Room Air 03/27/25 09:38 Temperature 97.9 F 03/27/25 09:38 Pulse Rate 69 03/27/25 09:38 Respiratory Rate 20 03/27/25 09:38 Blood Pressure 134/71 03/27/25 09:38 Pulse Oximetry 99 03/27/25 09:38 Oxygen Delivery Room Air 03/27/25 09:38 Reviewed MDM - Dizziness MDM Narrative Medical decision making narrative: EKG sinus bradycardia without ischemic findings. NIH score is 0. Patient neurologically intact. Symptoms likely related to vertigo. Patient given a dose of meclizine with improvement of symptoms. Offered patient ER transfer given his symptoms and he declined. Patient has a follow-up within the week with his PCP. Will send him a with meclizine. Advised patient to talk to his doctor about his duloxetine since he ran out which could cause his symptoms. Discussed physical exam findings. Advised supportive measures and signs/symptoms to go to the ER. Pt is appropriate for outpt treatment and f/u. Differential Diagnosis Differential diagnosis: Likely adverse reaction to drug, benign paroxysmal positional vertigo, vertebral basilar insufficiency, cerebrovascular accident and transient cerebral ischemia ECG Data EKG #1: Attestation: I personally reviewed and interpreted this ECG as follows: ECG completion date: 03/27/25 ECG completion time: 10:15 Prior ECG tracings: not available for review EKG Interpretation: bradycardia, sinus rhythm, no ectopy, no ST changes, normal QRS, normal QT and NL axis Critical Care Time Critical Care Time Critical Care Time: No Discharge Plan Discharge Clinical Impression: Dizziness Patient Disposition: Home Condition: Stable Instructions: Vertigo (ED) Additional Instructions: Take meclizine as needed for dizziness. Follow-up with your PCP in 2-3 days. Rest and drink plenty of fluids. Change positions slowly. Tylenol or Motrin as needed for pain. Follow instructions on the bottle. If your symptoms worsen, your unable to walk, you have severe dizziness, vomiting, fevers, severe headaches, vision changes, double vision, chest pains, difficulty breathing, slurred speech, facial droop, one-sided weakness, or any serious concerns please go to the ER immediately. Patient Language: Andorran Prescriptions: New meclizine 25 mg tablet 25 mg PO TID PRN (Reason: dizziness) 3 Days Qty: 14 0RF No Action gabapentin 400 mg capsule 400 mg PO TID cetirizine 10 mg tablet 10 mg PO DAILY bupropion HCl 150 mg tablet extended release 24 hr 150 mg PO DAILY duloxetine 60 mg capsule,delayed release(DR/EC) PO omeprazole 20 mg capsule,delayed release(DR/EC) 20 mg PO DAILY atorvastatin 40 mg tablet 40 mg PO DAILY Follow-up/Referrals: Christy,Nelia Gomez APRN [Primary Care Provider, Unknown] Stand Alone Forms: Work/School Release IP Time of Disposition: 10:40
[2025-03-27] MEDS: MECLIZINE HCL 25 MG TABLET PO (10:43)
== END 2025-03-27 10:56 | disposition home or self-care (01) ==
PROVIDERS: PCP Nurse Practitioner Family
DX: R42 Dizziness and giddiness (principal); E66.9 Obesity, unspecified; Z68.35 Body mass index [BMI] 35.0-35.9, adult; F32.A Depression, unspecified; Z87.891 Personal history of nicotine dependence
CPT/HCPCS: 93005; 99213; A9270; G0463